=== PATIENT | male | born 1975 | race Two or more races ===

== ENCOUNTER 2022-09-23 13:55 | Emergency (ER) | payer MEDICAID ==
[~2022-09-23] VITALS: Ht 170.2 cm; Wt 97.4 kg
[2022-09-23] MEDS ORDERED: CHL10C PO (15:57)
[2022-09-23] MEDS ORDERED: THIAMINE 100mg/ml INJ (200mg/2ml VIAL) IV ONE (16:00)
[2022-09-23] MEDS ORDERED: chlordiazePOXIDE HCL 5 MG CAP PO ONE (16:00)
[2022-09-23] MEDS ORDERED: SODIUM CHLORIDE 0.9% 1,000 ML IV ONE ×4 (16:00)
[2022-09-23 16:13] LABS: Basophils # (auto) 0.1 10 ^3/uL (0-0.2); Basophils % (auto) 0.5 % (0.0-2.0); Eosinophils # (auto) 0 10 ^3/uL (0-0.8); Eosinophils % (auto) 0.1 % (0.0-7.0); Hematocrit 44.4 % (41.0-53.0); Hemoglobin 15.4 g/dL (13.5-17.5); Lymphocytes # (auto) 1.1 10 ^3/uL (0.4-5.4); Lymphocytes % (auto) 9.5 % (10.0-50.0); Mean Corpuscular Hemoglobin 30.2 pg (28.0-32.0); Mean Corpuscular Hgb Conc. 34.6 g/dL (32.0-36.0); Mean Corpuscular Volume 87.5 fL (80.0-100.0); Monocytes # (auto) 0.6 10 ^3/uL (0-1.3); Monocytes % (auto) 5.5 % (0.0-12.0); Neutrophils # (auto) 9.9 10 ^3/uL (1.6-8.6); Neutrophils % (auto) 84.4 % (37.0-80.0); Nucleated Red Blood Cells % 0.2 %; Red Blood Cells 5.08 10^6/uL (4.5-5.90); Red Cell Distribution Width 12.5 % (11.8-14.3); White Blood Cell 11.7 10^3/uL (4.4-10.8)
[2022-09-23 16:36] LABS: Albumin 4.2 g/dL (3.4-5.0); Anion Gap 12 (5-15); Blood Alcohol < 3.0 mg/dL (0-5); Blood Urea Nitrogen 12 mg/dL (7-18); Calcium 9.5 mg/dL (8.5-10.1); Carbon Dioxide 26 mmol/L (21-32); Chloride 96 mmol/L (98-107); Glucose 132 mg/dL (74-106); Sodium 134 mmol/L (136-145)
[2022-09-23 16:39] LABS: Alanine Aminotransferase 93 U/L (16-61); Alkaline Phosphatase 126 U/L (45-117); Aspartate Aminotransferase 58 U/L (15-37); BUN/Creatinine Ratio 14.8 (10.0-20.0); Bilirubin, Total 0.9 mg/dL (0.2-1.0); GFR African American 131 mL/min; GFR Non-African American 108 mL/min; Total Protein 7.6 g/dL (6.4-8.2)
[2022-09-23] MEDS ORDERED: CEPH-510 PO (17:29)
[2022-09-23 18:09] VITALS: BP 110/79
[2022-09-23 18:18] LABS: Urine Bacteria NONE SEEN /hpf (None Seen); Urine Blood Negative /uL (Negative); Urine Mucus FEW (None Seen); Urine WBC 1 /hpf (0 - 3)
== END 2022-09-23 19:27 | disposition home or self-care (01) ==
LOC: ER 13:55
DX: F10.239 Alcohol dependence with withdrawal, unspecified (principal); D72.829 Elevated white blood cell count, unspecified; F41.9 Anxiety disorder, unspecified; Y90.9 Presence of alcohol in blood, level not specified
CPT/HCPCS: 36415; 80053; 80320; 81001; 85025; 96361; 96374; 99283; J3411; J7030

== ENCOUNTER 2023-04-29 09:57 | Emergency (ER) | payer MEDICAID ==
[~2023-04-29] VITALS: Ht 170.2 cm; Wt 87.3 kg
[~2023-04-29 09:57] MED LIST: CEPH-510 PO; CHL10C PO
[2023-04-29] MEDS ORDERED: THIAMINE 100mg/ml INJ (200mg/2ml VIAL) IV ONE (10:15)
[2023-04-29] MEDS ORDERED: SODIUM CHLORIDE 0.9% 1,000 ML IVB ONE (10:15)
[2023-04-29] MEDS ORDERED: SODIUM CHLORIDE 0.9% 1,000 ML IV ONE ×2 (10:15)
[2023-04-29 10:48] LABS: Basophils # (auto) 0.1 10 ^3/uL (0-0.2); Eosinophils # (auto) 0.1 10 ^3/uL (0-0.8); Eosinophils % (auto) 1.8 % (0.0-7.0); Hematocrit 44.3 % (41.0-53.0); Hemoglobin 15.7 g/dL (13.5-17.5); Lymphocytes # (auto) 2.2 10 ^3/uL (0.4-5.4); Lymphocytes % (auto) 29.3 % (10.0-50.0); Mean Corpuscular Hemoglobin 31.1 pg (28.0-32.0); Mean Corpuscular Hgb Conc. 35.4 g/dL (32.0-36.0); Mean Corpuscular Volume 87.9 fL (80.0-100.0); Monocytes # (auto) 0.4 10 ^3/uL (0-1.3); Monocytes % (auto) 5.6 % (0.0-12.0); Neutrophils # (auto) 4.8 10 ^3/uL (1.6-8.6); Neutrophils % (auto) 62.3 % (37.0-80.0); Nucleated Red Blood Cells % 0.1 %; Red Blood Cells 5.04 10^6/uL (4.5-5.90); Red Cell Distribution Width 12.8 % (11.8-14.3); White Blood Cell 7.7 10^3/uL (4.4-10.8)
[2023-04-29 10:57] LABS: Alanine Aminotransferase 76 U/L (7-40); Albumin 4.9 g/dL (3.2-4.8); Alkaline Phosphatase 135 U/L (46-116); Anion Gap 13 (5-15); Aspartate Aminotransferase 50 U/L (13-40); BUN/Creatinine Ratio 8.2 (10.0-20.0); Blood Urea Nitrogen 6 mg/dL (9-23); Calcium 9.6 mg/dL (8.5-10.1); Carbon Dioxide 27 mmol/L (20-30); Chloride 97 mmol/L (98-107); Glucose 105 mg/dL (74-106); Potassium 3.6 mmol/L (3.5-5.1); Sodium 137 mmol/L (136-145); Total Protein 7.7 g/dL (5.7-8.2)
[2023-04-29 13:03] LABS: Urine Bacteria NONE SEEN /hpf (None Seen); Urine Blood TRACE /uL (Negative); Urine Clarity Clear (Clear); Urine Color Yellow (Yellow); Urine Mucus FEW (None Seen); Urine Protein, UAD 1+ (Negative); Urine Specific Gravity 1.027 (1.001-1.035); Urine Urobilinogen Normal (Negative); Urine WBC <1 /hpf (0 - 3)
[2023-04-29 15:04] VITALS: BP 133/85; PULSE 103; RESP 18; TEMP 98.9; O2SAT 97
== END 2023-04-29 16:46 | disposition home or self-care (01) ==
LOC: ER 09:57
DX: F10.10 Alcohol abuse, uncomplicated (principal); Z79.899 Other long term (current) drug therapy; Y90.6 Blood alcohol level of 120-199 mg/100 ml
CPT/HCPCS: 36415; 80053; 80320; 81001; 85025; 96361; 96374; 99283; J3411; J7030

== ENCOUNTER 2023-12-16 09:06 | Emergency (ER) | payer MEDICAID ==
[~2023-12-16] VITALS: Ht 177.8 cm; Wt 88.9 kg
[2023-12-16 09:30] VITALS: PULSE 98; RESP 21; TEMP 98.3; O2SAT 96
[2023-12-16 10:02] LABS: Basophils # (auto) 0.1 10 ^3/uL (0-0.2); Basophils % (auto) 1.3 % (0.0-2.0); Eosinophils # (auto) 0.2 10 ^3/uL (0-0.8); Eosinophils % (auto) 2.4 % (0.0-7.0); Hematocrit 43.9 % (41.0-53.0); Hemoglobin 15.4 g/dL (13.5-17.5); Mean Corpuscular Hemoglobin 30.8 pg (28.0-32.0); Mean Corpuscular Hgb Conc. 35.2 g/dL (32.0-36.0); Mean Corpuscular Volume 87.4 fL (80.0-100.0); Monocytes # (auto) 0.5 10 ^3/uL (0-1.3); Monocytes % (auto) 7.8 % (0.0-12.0); Neutrophils # (auto) 3.7 10 ^3/uL (1.6-8.6); Neutrophils % (auto) 57.5 % (37.0-80.0); Nucleated Red Blood Cells % 0.2 %; Red Blood Cells 5.02 10^6/uL (4.5-5.90); Red Cell Distribution Width 12.8 % (11.8-14.3); White Blood Cell 6.5 10^3/uL (4.4-10.8)
[2023-12-16 10:14] LABS: Alanine Aminotransferase 62 U/L (7-40); Albumin 4.8 g/dL (3.2-4.8); Alkaline Phosphatase 135 U/L (46-116); Anion Gap 9 (5-15); Aspartate Aminotransferase 42 U/L (13-40); Bilirubin, Total 0.6 mg/dL (0.2-1.0); Blood Alcohol 161.8 mg/dL (<10); Calcium 9.8 mg/dL (8.5-10.1); Carbon Dioxide 27 mmol/L (20-30); Chloride 103 mmol/L (98-107); Glucose 130 mg/dL (74-106); Potassium 3.6 mmol/L (3.5-5.1); Sodium 139 mmol/L (136-145); Total Protein 7.3 g/dL (5.7-8.2)
[2023-12-16 10:33] LABS: BUN/Creatinine Ratio 7.5 (10.0-20.0); Blood Urea Nitrogen < 5 mg/dL (9-23)
[2023-12-16 10:48] LABS: Urine Bacteria None Seen /hpf (None Seen)
[2023-12-16 11:18] LABS: Amphetamine Screen, Urine Neg (NEGATIVE); Barbiturate Scree,Urine Neg (NEGATIVE); Benzodiazephine Screen, Urine Neg (NEGATIVE); Cannabinoid Screen, Urine Neg (NEGATIVE); Cocaine Screen, Urine Neg (NEGATIVE); Opiate Scree,Urine Neg (NEGATIVE); Phencyclidine Screen, Urine Neg (NEGATIVE)
[2023-12-16] MEDS: LORazepam 2MG/ML-1ML VIAL IV ONE ×2 (11:31→14:55)
[2023-12-16] MEDS: ONDANSETRON HCL 4 MG/2 ML VIAL IV ONE (11:31)
[2023-12-16] MEDS: SODIUM CHLORIDE 0.9% 1,000 ML IVB ONE (11:32)
[2023-12-16 11:35] LABS: Urine Blood Negative /uL (Negative); Urine Clarity Clear (Clear); Urine Color Light-Yellow (Yellow); Urine Mucus FEW (None Seen); Urine Protein, UAD Negative (Negative); Urine Specific Gravity 1.015 (1.001-1.035); Urine Urobilinogen Normal (Negative); Urine WBC <1 /hpf (0 - 3); Urine pH 6.5 (5.0-9.0)
[2023-12-16] MEDS: FOLIC ACID 1 MG, MAGNESIUM SULF SDV 50% 8 MEQ, MULTIPLE VITAMIN 10 ML, THIAMINE INJ 100... INJ SCH (18:30)
[2023-12-16 23:05] VITALS: PULSE 80; RESP 12; O2SAT 96
[2023-12-17 03:36] VITALS: BP 121/80; PULSE 72; RESP 12; O2SAT 94
== END 2023-12-17 04:18 | disposition home or self-care (01) ==
LOC: ER 09:06
DX: F10.139 Alcohol abuse with withdrawal, unspecified (principal); F41.9 Anxiety disorder, unspecified; Y90.6 Blood alcohol level of 120-199 mg/100 ml
CPT/HCPCS: 36415; 80053; 80307; 80320; 81001; 83735; 85025; 96361; 96365; 96366; 96375; 96376; 99285; J2060; J2405; J3411; J3475; J7030

== ENCOUNTER 2024-02-02 05:01 | Emergency (ER) | payer MEDICAID ==
[~2024-02-02] VITALS: Ht 170.2 cm; Wt 87.5 kg
[2024-02-02] MEDS: THIAMINE HCL 100 MG TAB PO ONE (07:32)
[2024-02-02] MEDS: LORazepam 2MG/ML-1ML VIAL IV ONE (07:32)
[2024-02-02] MEDS: MULTIPLE VITAMIN TAB PO ONE (07:33)
[2024-02-02] MEDS: SODIUM CHLORIDE 0.9% 1,000 ML IVB ONE (07:33)
[2024-02-02 07:39] LABS: Basophils # (auto) 0.1 10 ^3/uL (0-0.2); Basophils % (auto) 0.9 % (0.0-2.0); Eosinophils # (auto) 0.1 10 ^3/uL (0-0.8); Eosinophils % (auto) 1.5 % (0.0-7.0); Hematocrit 44.7 % (41.0-53.0); Hemoglobin 15.7 g/dL (13.5-17.5); Lymphocytes # (auto) 1.6 10 ^3/uL (0.4-5.4); Lymphocytes % (auto) 22.4 % (10.0-50.0); Mean Corpuscular Hemoglobin 30.7 pg (28.0-32.0); Mean Corpuscular Hgb Conc. 35.2 g/dL (32.0-36.0); Mean Corpuscular Volume 87.4 fL (80.0-100.0); Monocytes # (auto) 0.3 10 ^3/uL (0-1.3); Monocytes % (auto) 4.3 % (0.0-12.0); Neutrophils % (auto) 70.9 % (37.0-80.0); Red Blood Cells 5.12 10^6/uL (4.5-5.90); Red Cell Distribution Width 13.2 % (11.8-14.3); White Blood Cell 7.1 10^3/uL (4.4-10.8)
[2024-02-02 07:55] VITALS: PULSE 87; RESP 20; O2SAT 96
[2024-02-02 07:57] LABS: Alanine Aminotransferase 53 U/L (7-40); Albumin 4.8 g/dL (3.2-4.8); Alkaline Phosphatase 135 U/L (46-116); Anion Gap 12 (5-15); Aspartate Aminotransferase 34 U/L (13-40); BUN/Creatinine Ratio 10.8 (10.0-20.0); Blood Urea Nitrogen 7 mg/dL (9-23); Calcium 9.4 mg/dL (8.7-10.4); Carbon Dioxide 25 mmol/L (20-30); Chloride 103 mmol/L (98-107); Glucose 114 mg/dL (74-106); Potassium 3.9 mmol/L (3.5-5.1); Sodium 140 mmol/L (136-145)
[2024-02-02 07:58] LABS: Bilirubin, Total 0.7 mg/dL (0.2-1.0); Total Protein 7.5 g/dL (5.7-8.2)
[2024-02-02 10:20] VITALS: PULSE 73; RESP 12; O2SAT 94
[2024-02-02 12:40] VITALS: BP 102/66; PULSE 88; RESP 13; TEMP 98; O2SAT 95
== END 2024-02-02 12:44 | disposition home or self-care (01) ==
LOC: ER 05:01
DX: F10.139 Alcohol abuse with withdrawal, unspecified (principal); Y90.8 Blood alcohol level of 240 mg/100 ml or more
CPT/HCPCS: 36415; 80053; 80320; 82140; 85025; 96361; 96374; 99285; J2060; J7030

== ENCOUNTER 2024-04-08 11:36 | Inpatient (IN) | payer MEDICAID ==
[~2024-04-08] VITALS: Ht 167.6 cm; Wt 89.3 kg
[2024-04-08] MEDS: SODIUM CHLORIDE 0.9% 1,000 ML IV ONE (12:27)
[2024-04-08] MEDS: ONDANSETRON HCL 4 MG/2 ML VIAL IV ONE ×2 (12:36→19:35)
[2024-04-08] MEDS: PANTOPRAZOLE 40 MG/10 ML VIAL INJ IV ONE (12:36)
[2024-04-08 12:55] LABS: Basophils # (auto) 0 10 ^3/uL (0-0.2); Basophils % (auto) 0.6 % (0.0-2.0); Eosinophils # (auto) 0 10 ^3/uL (0-0.8); Eosinophils % (auto) 0.4 % (0.0-7.0); Hematocrit 46.8 % (41.0-53.0); Hemoglobin 16.3 g/dL (13.5-17.5); Lymphocytes # (auto) 1.7 10 ^3/uL (0.4-5.4); Lymphocytes % (auto) 22.8 % (10.0-50.0); Mean Corpuscular Hemoglobin 30.9 pg (28.0-32.0); Mean Corpuscular Hgb Conc. 34.8 g/dL (32.0-36.0); Mean Corpuscular Volume 88.9 fL (80.0-100.0); Monocytes # (auto) 0.4 10 ^3/uL (0-1.3); Monocytes % (auto) 5.5 % (0.0-12.0); Neutrophils # (auto) 5.4 10 ^3/uL (1.6-8.6); Neutrophils % (auto) 70.7 % (37.0-80.0); Nucleated Red Blood Cells % 0.1 %; Platelet Count (auto) 309 10^3/uL (140-450); Red Blood Cells 5.26 10^6/uL (4.5-5.90); Red Cell Distribution Width 13.1 % (11.8-14.3); White Blood Cell 7.6 10^3/uL (4.4-10.8)
[2024-04-08 13:20] LABS: Alanine Aminotransferase 81 U/L (7-40); Alkaline Phosphatase 137 U/L (46-116); Anion Gap 16 (5-15); Aspartate Aminotransferase 73 U/L (13-40); Blood Alcohol 299.2 mg/dL (<10); Calcium 9.6 mg/dL (8.7-10.4); Carbon Dioxide 23 mmol/L (20-31); Chloride 101 mmol/L (98-107); Glucose 109 mg/dL (74-106); Potassium 3.8 mmol/L (3.5-5.1); Sodium 140 mmol/L (136-145)
[2024-04-08 13:21] LABS: Bilirubin, Total 0.7 mg/dL (0.2-1.0)
[2024-04-08 13:36] LABS: Blood Urea Nitrogen < 5 mg/dL (9-23)
[2024-04-08 13:49] LABS: Urine Bacteria None Seen /hpf (None Seen)
[2024-04-08 14:04] LABS: Lipase 40 U/L (12-53)
[2024-04-08 14:07] LABS: Urine Blood TRACE /uL (Negative); Urine Clarity Clear (Clear); Urine Color Yellow (Yellow); Urine Mucus FEW (None Seen); Urine Protein, UAD 1+ (Negative); Urine Specific Gravity 1.018 (1.001-1.035); Urine Urobilinogen Normal (Negative); Urine WBC <1 /hpf (0 - 3)
[2024-04-08] MEDS: FOLIC ACID 1 MG in D5W 5% 50 ML INJ ONE (15:15)
[2024-04-08] MEDS: THIAMINE 100mg/ml INJ (200mg/2ml VIAL) IV ONE (15:31)
[2024-04-08] MEDS: chlordiazePOXIDE HCL 25 MG CAP PO ONE (19:32)
[2024-04-08] MEDS: MORPHINE SULFATE 4 MG/ML SYR/VIAL IV ONE (19:34)
[2024-04-08] MEDS: LORazepam 2MG/ML-1ML VIAL IV ONE (23:00)
[2024-04-09] MEDS ORDERED: ONDANSETRON HCL 4 MG/2 ML VIAL IV PRN (01:45)
[2024-04-09] MEDS: SODIUM CHLORIDE 0.9% 1,000 ML IV SCH (02:30)
[2024-04-09] MEDS ORDERED: LORazepam 2MG/ML-1ML VIAL IV PRN (03:45)
[2024-04-09 06:43] LABS: Alanine Aminotransferase 57 U/L (7-40); Alkaline Phosphatase 110 U/L (46-116); Calcium 9.1 mg/dL (8.7-10.4); Carbon Dioxide 28 mmol/L (20-31); Chloride 102 mmol/L (98-107); Glucose 87 mg/dL (74-106); Potassium 3.3 mmol/L (3.5-5.1)
[2024-04-09 06:44] LABS: Anion Gap 8 (5-15); Aspartate Aminotransferase 45 U/L (13-40); BUN/Creatinine Ratio 8.5 (10.0-20.0); Blood Urea Nitrogen 7 mg/dL (9-23); Sodium 138 mmol/L (136-145)
[2024-04-09 06:45] LABS: Bilirubin, Total 1.1 mg/dL (0.2-1.0); Total Protein 6.3 g/dL (5.7-8.2)
[2024-04-09 09:17] VITALS: PULSE 76; RESP 15; O2SAT 100
[2024-04-09] MEDS: chlordiazePOXIDE HCL 5 MG CAP PO SCH (10:12)
[2024-04-09] MEDS: MORPHINE SULFATE INJ 2 MG/ml SYRG IV PRN (13:08)
[2024-04-09 13:19] VITALS: BP 127/82; PULSE 85; RESP 17; TEMP 98.5; O2SAT 99
[2024-04-09 13:20] VITALS: BP 127/82; PULSE 85; RESP 17; TEMP 98.5; O2SAT 99
[2024-04-09 17:57] VITALS: BP 123/74; PULSE 85; RESP 16; TEMP 98.7; O2SAT 96
[2024-04-09] MEDS: POTASSIUM EFFERVESENT TAB 25 MEQ PO ONE (18:18)
[2024-04-09] MEDS: FOLIC ACID 1 MG, MAGNESIUM SULF SDV 50% 8 MEQ, MULTIPLE VITAMIN 10 ML, THIAMINE INJ 100... INJ SCH (18:18)
[2024-04-09 20:00] VITALS: PULSE 89
[2024-04-09 21:00] VITALS: BP 130/77; PULSE 94; RESP 20; TEMP 98.6; O2SAT 98
[2024-04-10] VITALS (8 sets, daily range): BP systolic 110–124; BP diastolic 69–82; PULSE 68–99; RESP 16–20; TEMP 97.6–98.7; O2SAT 98–100
[2024-04-10 05:21] LABS: Basophils # (auto) 0.1 10 ^3/uL (0-0.2); Eosinophils # (auto) 0.3 10 ^3/uL (0-0.8); Eosinophils % (auto) 4.1 % (0.0-7.0); Hemoglobin 14.3 g/dL (13.5-17.5); Lymphocytes # (auto) 1.5 10 ^3/uL (0.4-5.4); Lymphocytes % (auto) 23.2 % (10.0-50.0); Mean Corpuscular Hemoglobin 30.8 pg (28.0-32.0); Mean Corpuscular Hgb Conc. 34.9 g/dL (32.0-36.0); Mean Corpuscular Volume 88.3 fL (80.0-100.0); Monocytes # (auto) 0.6 10 ^3/uL (0-1.3); Monocytes % (auto) 9.4 % (0.0-12.0); Neutrophils # (auto) 4.1 10 ^3/uL (1.6-8.6); Neutrophils % (auto) 62.3 % (37.0-80.0); Nucleated Red Blood Cells % 0.1 %; Platelet Count (auto) 194 10^3/uL (140-450); Red Blood Cells 4.64 10^6/uL (4.5-5.90); Red Cell Distribution Width 12.8 % (11.8-14.3); White Blood Cell 6.6 10^3/uL (4.4-10.8)
[2024-04-10 05:41] LABS: Alanine Aminotransferase 55 U/L (7-40); Albumin 3.9 g/dL (3.2-4.8); Alkaline Phosphatase 112 U/L (46-116); Anion Gap 7 (5-15); Aspartate Aminotransferase 39 U/L (13-40); Bilirubin, Total 1.1 mg/dL (0.2-1.0); Calcium 9.1 mg/dL (8.7-10.4); Carbon Dioxide 29 mmol/L (20-31); Chloride 104 mmol/L (98-107); Glucose 115 mg/dL (74-106); Potassium 3.5 mmol/L (3.5-5.1); Sodium 140 mmol/L (136-145); Total Protein 6.1 g/dL (5.7-8.2)
[2024-04-10 05:43] LABS: BUN/Creatinine Ratio 6.8 (10.0-20.0); Blood Urea Nitrogen < 5 mg/dL (9-23)
[2024-04-10 05:44] LABS: INR 1.01 (0.9-1.15); Partial Thromboplastin Time 27.6 SEC (24.5-34.5); Prothrombin Time 10.7 sec (9.3-11.8)
[2024-04-10] MEDS: ALPRAZolam 0.5 MG TAB PO PRN (19:07)
[2024-04-11 01:00] VITALS: BP 113/81; PULSE 79; RESP 17; TEMP 98.3; O2SAT 98
[2024-04-11 05:00] VITALS: BP 104/61; PULSE 76; RESP 17; TEMP 97.7; O2SAT 98
[2024-04-11 08:00] VITALS: BP 109/72; PULSE 72; RESP 18; TEMP 98; O2SAT 98
== END 2024-04-11 09:11 | disposition left against medical advice (07) | DRG 816 ==
LOC: ER 11:36 → TELE 04-09 03:51 → TELE-E-ADS 04-09 12:30
PROVIDERS: ADMIT Nurse Practitioner Family; ATTEND Nurse Practitioner Family
DX: T51.91XA Toxic effect of unspecified alcohol, accidental (unintentional), initial encounter (principal); K70.9 Alcoholic liver disease, unspecified; F10.230 Alcohol dependence with withdrawal, uncomplicated; R10.13 Epigastric pain; Z53.29 Procedure and treatment not carried out because of patient's decision for other reasons; K80.20 Calculus of gallbladder without cholecystitis without obstruction; K82.8 Other specified diseases of gallbladder; Y90.8 Blood alcohol level of 240 mg/100 ml or more; Z79.899 Other long term (current) drug therapy
CPT/HCPCS: 36415; 71045; 74176; 74181; 80053; 80320; 81001; 83690; 83735; 85025; 85610; 85730; 96365; 96375; 99291; G0378; J2405; J2470; J7060